=== PATIENT | male | born 1985 | race Caucasian/White ===

== ENCOUNTER 2025-02-06 20:17 | Inpatient (IN) | payer BC ==
[~2025-02-06] VITALS: Ht 177.8 cm; Wt 88.5 kg
[2025-02-06 21:17] LABS: CREATININE 1.0 mg/dL (0.6-1.3); SODIUM SERUM 140.0 mmol/L (136-145); UREA NITROGEN, BLOOD 15.0 mg/dL (7-18)
[2025-02-06 21:19] LABS: ETHANOL < 3 MG/DL (0-10)
[2025-02-06 21:21] LABS: *AMPHETAMINE, URINE NEGATIVE (NEGATIVE); *BARBITURATE, URINE POSITIVE (NEGATIVE); *BENZODIAZEPINE, URINE POSITIVE (NEGATIVE); *CANNABINOID, URINE NEGATIVE (NEGATIVE); *COCCAINE, URINE NEGATIVE (NEGATIVE); *OPIATE, URINE NEGATIVE (NEGATIVE); *PHENCYCLIDINE SCREEN,URINE NEGATIVE (NEGATIVE); FENTANYL, URINE NEGATIVE (NEGATIVE)
[2025-02-06 21:23] LABS: ASPARTATE AMINOTRANSFERASE 17.0 U/L (15-37); TOTAL PROTEIN, SERUM 7.6 g/dL (6.4-8.2)
[2025-02-06] MEDS: ACETAMINOPHEN 500 MG TABLET PO ONE (21:24)
[2025-02-06] MEDS: LORAZEPAM 2 MG/1 ML VIAL IV ONE ×2 (21:24→22:21)
[2025-02-06] MEDS: IV NORMAL SALINE 1000 ML BAG IV ONE (21:24)
[2025-02-06] MEDS: ONDANSETRON 4 MG/2 ML VIAL IV ONE (21:24)
[2025-02-06 21:33] LABS: PLATELET COUNT (AUTO) 332 K/uL (152-348); RED BLOOD CELL COUNT(AUTO) 5.09 MIL/uL (4.06-5.63); RED CELL DISTRIBUTION WIDTH 13.1 % (12.1-16.2); WHITE BLOOD COUNT (AUTO) 10.8 K/uL (3.6-10.2)
[2025-02-06] MEDS ORDERED: LORAZEPAM 2 MG/1 ML VIAL ONE (22:14)
[2025-02-06] MEDS: BUPRENORPHINE HCL 2 MG TAB.SUBL SL ONE (23:15)
[2025-02-06] MEDS ORDERED: phenobarbital PO (23:34)
[2025-02-06] MEDS ORDERED: THIA100T74 PO (23:34)
[2025-02-06] MEDS ORDERED: BUPR8TAB4 SL (23:34)
[2025-02-06] MEDS ORDERED: FLUO20CA42 PO (23:34)
[2025-02-06] MEDS ORDERED: BUSP10TA3 PO (23:34)
[2025-02-06] MEDS ORDERED: LORA-259 PO (23:34)
[2025-02-06] MEDS ORDERED: IBUP-1955 PO (23:34)
[2025-02-06] MEDS ORDERED: DIVA500T4 PO (23:34)
[2025-02-06] MEDS ORDERED: FLUO40CA49 PO (23:34)
[2025-02-06] MEDS ORDERED: LEVE500T9 PO (23:34)
[2025-02-06] MEDS ORDERED: ONDA-104 PO (23:34)
[2025-02-07 00:15] VITALS: BP 119/72
[2025-02-07] MEDS ORDERED: BUPRENORPHINE HCL 2 MG TAB.SUBL SL ONE (00:58)
[2025-02-07] MEDS ORDERED: HOME MED MISCELLANEOUS XX SCH (01:15)
[2025-02-07] MEDS ORDERED: ONDANSETRON 4 MG/2 ML VIAL IV PRN (01:15)
[2025-02-07] MEDS ORDERED: MAGNESIUM HYDROXIDE 30 ML LIQUID UDC PO PRN (01:15)
[2025-02-07] MEDS ORDERED: IBUPROFEN 600 MG TABLET PO PRN (01:15)
[2025-02-07] MEDS ORDERED: ACETAMINOPHEN 325 MG TABLET PO PRN (01:15)
[2025-02-07] MEDS: IV NS 1000 ML 1,000 ML IV PRN (03:28)
[2025-02-07] MEDS ORDERED: GABA800T11 PO (03:41)
[2025-02-07] MEDS ORDERED: QUET50TA PO (03:41)
[2025-02-07] MEDS ORDERED: PROP20TA7 PO (03:41)
[2025-02-07] MEDS ORDERED: LISD60CA PO (03:41)
[2025-02-07] MEDS ORDERED: FLUO20CA36 PO (03:41)
[2025-02-07] MEDS ORDERED: BUPR1FIL7 SL (03:41)
[2025-02-07] MEDS ORDERED: HYDR-3641 GT (03:41)
[2025-02-07 04:00] VITALS: BP 110/75; TEMP 97.7; O2SAT 96
[2025-02-07] MEDS: LORAZEPAM 1 MG TABLET PO PRN (04:30)
[2025-02-07] MEDS: PANTOPRAZOLE SODIUM 40 MG TABLET.DR PO SCH (06:42)
[2025-02-07] MEDS: THIAMINE HCL 100 MG TABLET PO SCH (08:11)
[2025-02-07] MEDS: LORAZEPAM 1 MG TABLET PO SCH ×2 (08:11→20:17)
[2025-02-07] MEDS: FLUOXETINE HCL 20 MG CAPSULE PO SCH (08:12)
[2025-02-07] MEDS ORDERED: BUPR1FIL3 SL (10:04)
[2025-02-07 10:56] VITALS: BP 129/62; TEMP 98.3; O2SAT 100
[2025-02-07] MEDS: LORAZEPAM 2 MG/1 ML VIAL IV ONE (12:58)
[2025-02-07] MEDS: BUPRENORPHINE HCL 2 MG TAB.SUBL SL SCH (12:58)
[2025-02-07] MEDS: FLUOXETINE HCL 20 MG CAPSULE PO ONE (14:31)
[2025-02-07] MEDS: PHENOBARBITAL 32.4 MG TABLET PO SCH (14:31)
[2025-02-07 15:07] VITALS: BP 127/79; TEMP 97.6; O2SAT 99
[2025-02-07] MEDS: OLANZAPINE 5 MG TABLET PO ONE (15:14)
[2025-02-07 19:50] VITALS: BP 100/54; TEMP 98.7; O2SAT 95
[2025-02-07] MEDS: DIVALPROEX ER 500 MG TAB.SR.24H PO SCH (20:16)
[2025-02-08 06:41] LABS: PLATELET COUNT (AUTO) 343 K/uL (152-348); RED BLOOD CELL COUNT(AUTO) 4.99 MIL/uL (4.06-5.63); RED CELL DISTRIBUTION WIDTH 13.4 % (12.1-16.2); WHITE BLOOD COUNT (AUTO) 6.8 K/uL (3.6-10.2)
[2025-02-08] MEDS: LORAZEPAM 1 MG TABLET PO PRN ×2 (06:43→16:38)
[2025-02-08 06:58] LABS: ASPARTATE AMINOTRANSFERASE 16.0 U/L (15-37); CREATININE 0.9 mg/dL (0.6-1.3); SODIUM SERUM 143.0 mmol/L (136-145); TOTAL PROTEIN, SERUM 6.4 g/dL (6.4-8.2); UREA NITROGEN, BLOOD 14.0 mg/dL (7-18)
[2025-02-08] MEDS: FLUOXETINE HCL 20 MG CAPSULE PO SCH (09:01)
[2025-02-08] MEDS: PHENOBARBITAL 32.4 MG TABLET PO SCH (09:03)
[2025-02-08] MEDS: LORAZEPAM 1 MG TABLET PO SCH (09:03)
[2025-02-08] MEDS ORDERED: THIAMINE HCL 100 MG TABLET PO SCH (14:45)
[2025-02-08] MEDS: FOLIC ACID 1 MG TABLET PO SCH (15:16)
[2025-02-08 15:40] VITALS: BP 135/68; TEMP 98; O2SAT 98
[2025-02-08] MEDS: QUETIAPINE FUMARATE 25 MG TABLET PO PRN (17:31)
[2025-02-08 19:49] VITALS: BP 98/60; TEMP 98.3; O2SAT 95
[2025-02-08] MEDS: QUETIAPINE FUMARATE 200 MG TABLET PO SCH (21:20)
[2025-02-09 05:17] VITALS: BP 108/61; TEMP 98; O2SAT 97
[2025-02-09] MEDS: MULTIVITAMINS,THERAPEUTIC TABLET PO SCH (08:39)
[2025-02-09] MEDS ORDERED: LORA-259 PO ×2 (09:56)
[2025-02-09] MEDS ORDERED: FOLI1TAB94 PO (09:56)
[2025-02-09] MEDS ORDERED: BUSP10TA3 PO (09:56)
[2025-02-09] MEDS ORDERED: QUET25TA36 PO (09:56)
[2025-02-09] MEDS ORDERED: PANT40TA49 PO (09:56)
[2025-02-09] MEDS ORDERED: MULT-24 PO (09:56)
[2025-02-09] MEDS ORDERED: DIVA500T4 PO (09:56)
[2025-02-09] MEDS ORDERED: BUPR2TAB3 SL (09:56)
[2025-02-09] MEDS ORDERED: LEVE500T9 PO (09:56)
[2025-02-09] MEDS ORDERED: QUET200T31 PO (09:56)
[2025-02-09] MEDS ORDERED: FLUO20CA42 PO (09:56)
[2025-02-09] MEDS ORDERED: THIA100T13 PO (09:56)
[2025-02-09] MEDS ORDERED: ACET325T53 PO (09:56)
[2025-02-09 11:04] VITALS: BP 107/67; TEMP 98.4; O2SAT 96
[2025-02-10] MEDS ORDERED: LORAZEPAM 1 MG TABLET PO SCH (09:00)
== END 2025-02-09 11:35 | disposition other institution (70) | DRG 101 ==
LOC: ER 20:25 → MEDSURG3 02-07 00:56
PROVIDERS: ADMIT Nurse Practitioner Acute Care; ATTEND Internal Medicine
DX: G40.509 Epileptic seizures related to external causes, not intractable, without status epilepticus (principal); F10.239 Alcohol dependence with withdrawal, unspecified; F11.13 Opioid abuse with withdrawal; F13.139 Sedative, hypnotic or anxiolytic abuse with withdrawal, unspecified; F41.0 Panic disorder [episodic paroxysmal anxiety]; S09.90XA Unspecified injury of head, initial encounter; Y04.0XXA Assault by unarmed brawl or fight, initial encounter; Y92.89 Other specified places as the place of occurrence of the external cause; Z79.899 Other long term (current) drug therapy; G89.29 Other chronic pain; M54.2 Cervicalgia; F43.10 Post-traumatic stress disorder, unspecified; F90.9 Attention-deficit hyperactivity disorder, unspecified type; D72.829 Elevated white blood cell count, unspecified; F13.180 Sedative, hypnotic or anxiolytic abuse with sedative, hypnotic or anxiolytic-induced anxiety disorder; Y90.0 Blood alcohol level of less than 20 mg/100 ml; I10 Essential (primary) hypertension; R45.1 Restlessness and agitation
CPT/HCPCS: 36415; 70450; 83735; 84100; 84443; 85025; A4606; A4663; A9150; G0378; G0480; J1953; J2060; J2405; J7040